=== PATIENT | male | born 1990 | race Two or more races ===

== ENCOUNTER 2022-05-18 04:43 | Emergency (ER) | payer OTHER ==
[~2022-05-18] VITALS: Ht 180.3 cm; Wt 86.2 kg
[2022-05-18] MEDS ORDERED: CLEOCIN HCL300 MG PO ×2 (09:49→09:51)
== END 2022-05-18 10:01 | disposition home or self-care (01) ==
LOC: ER 04:43
DX: K13.0 Diseases of lips (principal); Z91.013 Allergy to seafood

== ENCOUNTER 2022-05-20 03:48 | Emergency (ER) | payer OTHER ==
[~2022-05-20] VITALS: Ht 180.3 cm; Wt 88.5 kg
[~2022-05-20 03:48] MED LIST: CLEOCIN HCL300 MG PO
[2022-05-20] MEDS ORDERED: MEDROLPACK PO (09:27)
== END 2022-05-20 09:52 | disposition home or self-care (01) ==
LOC: ER 03:48
DX: B99.8 Other infectious disease (principal); K13.79 Other lesions of oral mucosa